=== PATIENT | female | born 1975 | race Two or more races ===

== ENCOUNTER 2022-02-22 14:24 | Emergency (ER) | payer SELFPAY ==
[~2022-02-22] VITALS: Ht 157.5 cm; Wt 66.2 kg
[2022-02-22 14:35] VITALS: BP 140/64
[2022-02-22 15:33] LABS: APPEARANCE,URINE CLEAR (CLEAR); BILIRUBIN,URINE NEGATIVE (NEGATIVE); BLOOD, URINE 2+ (NEGATIVE); COLOR,URINE YELLOW (YELLOW); LEUKOCYTE ESTERASE ,URINE NEGATIVE (NEGATIVE); NITRITE, URINE NEGATIVE (NEGATIVE); UGLUCOSE NEGATIVE (NEGATIVE)
[2022-02-22 15:50] LABS: WBC,URINE 0-5 /HPF (0-5)
[2022-02-22 15:53] LABS: OTHER CASTS, URINE None Seen /LPF (None Seen); URIC ACID CRYSTALS,URINE 0-10 /HPF (None Seen)
[2022-02-22] MEDS ORDERED: KETOROLAC 30 MG/ML VIAL IM ONE (16:45)
--- NOTE | 2022-02-22 17:48 | NUR ---
PT AMBULATED TO ER BED 2
--- NOTE | 2022-02-22 18:00 | NUR ---
46F presents to ED with c/o UTI symptoms, ABD and low back pain x1 week. Pt reports noting blood in urine on 02/16/22, low ABD/pelvic pain radiating to lower back. Pt describes pain as constant, cramping like, 9/10 on pain scale. Pt reports nausea, frequent and painful urination and intermittent headaches. Pt reports taking Tylenol with relief of pain, denies taking meds today. Pt denies fevers, chills, vomiting and diarrhea.
[2022-02-22] MEDS ORDERED: KETOROLAC 30 MG/ML VIAL ONE (18:02)
[2022-02-22 18:32] VITALS: BP 126/45
[2022-02-22 18:38] LABS: BASOPHILS % (AUTO) 0.7 % (0.0-2.0); EOSINOPHILS # (AUTO) 0.1 K/uL (0-0.4); EOSINOPHILS % (AUTO) 1.7 % (0.0-4.0); HEMATOCRIT 36.8 % (36-48); HEMOGLOBIN 12.1 g/dL (12.0-16.0); LYMPHOCYTES # (AUTO) 1.9 K/uL (2.5-16.5); LYMPHOCYTES % (AUTO) 24.7 % (20.5-51.1); MEAN CORPUSCULAR HEMOGLOBIN 27 pg (27-31); MEAN CORPUSCULAR HGB CONC 33 g/dL (33-37); MEAN CORPUSCULAR VOLUME 82.8 fL (80-94); MONOCYTES # (AUTO) 0.7 K/uL (0.8-1.0); MONOCYTES % (AUTO) 8.5 % (1.7-9.3); NEUTROPHILS # (AUTO) 4.9 K/uL (1.8-7.7); NEUTROPHILS % (AUTO) 64.4 % (42.2-75.2); PLATELET COUNT (AUTO) 346 K/uL (140-450); RED BLOOD CELL COUNT(AUTO) 4.45 MIL/uL (4.20-5.40); RED CELL DISTRIBUTION WIDTH 15.9 % (11.6-13.7); WHITE BLOOD COUNT (AUTO) 7.6 K/uL (4.8-10.8)
[2022-02-22 19:00] LABS: ALBUMIN 3.6 g/dL (3.4-5.0); ANION GAP 12.4 (8-16); CARBON DIOXIDE 27.3 mmol/L (21-32); CREATININE 0.6 mg/dL (0.6-1.3); POTASSIUM 3.7 mmol/L (3.5-5.1); TOTAL BILIRUBIN 0.2 mg/dL (0.0-1.0)
[2022-02-22] MEDS ORDERED: IBUP-2213 PO (19:15)
--- NOTE | 2022-02-22 19:20 | NUR ---
REPORT FROM ENRRIQUE KABA PT PENDING DC
== END 2022-02-22 19:30 | disposition home or self-care (01) ==
LOC: MED 14:24
DX: M54.50 Low back pain, unspecified (principal); R10.2 Pelvic and perineal pain
CPT/HCPCS: 36415; 76856; 80053; 81001; 81025; 85025; 96372; 99284; J1885; Q0092